=== PATIENT | male | born 1985 | race Caucasian/White ===

== ENCOUNTER 2018-11-14 16:51 | Emergency (ER) | payer OTHER ==
[~2018-11-14] VITALS: Ht 182.9 cm; Wt 113.4 kg
[2018-11-14 17:33] LABS: BILIRUBIN,URINE NEGATIVE (NEG); CLARITY,URINE CLEAR; COLOR,URINE YELLOW; NITRITE,URINE NEGATIVE (NEG); PROTEIN,URINE NEGATIVE (NEG-TRACE)
--- NOTE | 2018-11-14 17:35 | PHYS DOC ---
Adult General Chief Complaint Chief Complaint: PENIS PROBLEM HPI HPI Patient is a 33 year old male with no significant medical history who presents to the ED today complaining of soreness around his penile head and penile shaft that began yesterday, patient states he was having sexual intercourse with his female partner in missionary position when his penile slipped out and he believed it bent and went back to normal erection right away, he states he has had soreness to the penis shaft and head since then. Patient denies any difficulty voiding. Denies any abdominal pain. Denies any scrotal pain. Denies any hematuria. Review of Systems Review of Systems Constitutional: Denies fever or chills [] GI: Denies abdominal pain, nausea, vomiting, bloody stools or diarrhea [] : Denies dysuria or hematuria [] Male : Reports penile pain Musculoskeletal: Denies back pain or joint pain [] Integument: Denies rash or skin lesions [] Neurologic: Denies headache, focal weakness or sensory changes [] All other systems were reviewed and found to be within normal limits, except as documented in this note. Physical Exam Physical Exam Constitutional: Well developed, well nourished, no acute distress, non-toxic appearance. [] Abdomen: Bowel sounds normal, soft, no tenderness, no masses, no pulsatile masses. [] Male penile exam done with a histology tech Circumcised male penile, no external lesions. 2 descended testicles noted. No palpable masses to the penis, or testicles no tenderness on palpation of the penile shaft and head. No tenderness to the pubic region or scrotum. Skin: Warm, dry, no erythema, no rash. [] Back: No tenderness, no CVA tenderness. [] Extremities: No tenderness, no cyanosis, no clubbing, ROM intact, no edema. [] Neurologic: Alert and oriented X 3, normal motor function, normal sensory function, no focal deficits noted. [] Psychologic: Affect normal, judgement normal, mood normal. [] Current Patient Data Vital Signs Vital Signs Date Time Temp Pulse Resp B/P (MAP) Pulse Ox O2 Delivery O2 Flow Rate FiO2 11/14/18 18:07 97.2 75 16 139/63 (88) 99 97.2 Lab Values Laboratory Tests Test 11/14/18 17:15 Urine Collection Type Unknown Urine Color Yellow Urine Clarity Clear Urine pH 6.0 Urine Specific [place] >=1.030 Urine Protein Negative mg/dL (NEG-TRACE) Urine Glucose (UA) Negative mg/dL (NEG) Urine Ketones (Stick) Negative mg/dL (NEG) Urine Blood Negative (NEG) Urine Nitrite Negative (NEG) Urine Bilirubin Negative (NEG) Urine Urobilinogen Dipstick 1.0 mg/dL (0.2 mg/dL) Urine Leukocyte Esterase Negative (NEG) Urine RBC 1-2 /HPF (0-2) Urine WBC 0 /HPF (0-4) Urine Bacteria 0 /HPF (0-FEW) Urine Mucus Marked /LPF EKG EKG [] Radiology/Procedures Radiology/Procedures [] Course & Med Decision Making Course & Med Decision Making Pertinent Labs and Imaging studies reviewed. (See chart for details) This is a 33-year-old male patient who presents to the ED today complaining of penile pain/soreness that began yesterday, patient states he was having intercourse with the female partner when his penile bent and returned back to normal erection right away. Denies any difficulty voiding. Denies any hematuria. Urine analysis is negative, unfortunately we do not have an ultrasound to take until around 7pm when patient was informed, he requested to be discharged, I provided him instructions to follow-up with urologist in the course of next week. Dragon Disclaimer Dragon Disclaimer This electronic medical record was generated, in whole or in part, using a voice recognition dictation system. Departure Departure Impression: Primary Impression: Penis injury Disposition: HOME, SELF-CARE Condition: STABLE Referrals: CHRISTIAN BLACKWELL MD Please call his office on Friday and set up a follow-up appointment Additional Instructions: You were evaluated in the emergency room for penile injury. Please contact the provided urologist on Friday morning and set up a follow-up appointment. Come back to the ED at any point you have concerning symptoms. Problem Qualifiers Primary Impression: Penis injury Encounter type: initial encounter Qualified Codes: S39.94XA - Unspecified injury of external genitals, initial encounter ASHANTI VILLATORO [employer] November 14, 2018 17:35
[2018-11-14 17:44] LABS: BACTERIA,URINE 0 /HPF (0-FEW); WBC,URINE 0 /HPF (0-4)
[2018-11-14 18:07] VITALS: BP 139/63
== END 2018-11-14 18:53 | disposition home or self-care (01) ==
LOC: ER 16:51
DX: S39.848A Other specified injuries of external genitals, initial encounter (principal); X58.XXXA Exposure to other specified factors, initial encounter; Y93.89 Activity, other specified; Y92.89 Other specified places as the place of occurrence of the external cause; Y99.8 Other external cause status
CPT/HCPCS: 81001; 99283